=== PATIENT | male | born 1945 | race Two or more races ===

== ENCOUNTER 2018-09-12 14:26 | Inpatient (IN) | payer OTHER, MEDICAID ==
[2018-09-12] MEDS ORDERED: traMADol 50 MG TAB PO PRN (16:35)
--- NOTE | 2018-09-12 17:01 | GHP ---
[f rep st] HISTORY AND PHYSICAL DATE OF ADMISSION: 09/12/2018 CHIEF COMPLAINT: Ascites. 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 He has no histo ry of alcohol or hep C. He sees Dr. Humphreys as an outpatient. [facility]. He has been requiring weekly paracentesis, which he has been gett ing as an outpatient at [facility]. He is unable to take diuretics, as it bumps his creat inine. His ascites is now intractable. He has lower extremity edema. He is getting weak. He has h ad progressive muscle wasting and loss of muscle mass. He has almost no appetite. He has had some i ntermittent vomiting. There has been no blood in his stool or vomit. Denies any abdominal pain or f ever. Sometimes might get a little confused. PAST MEDICAL HISTORY: 1. 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 2. Hep C, negative. 3. Alcohol, negative. 4. CKD. Last creatinine per Dr. Humphreys of 1.9. 5. BPH. MEDICATIONS: Please see computerized record for full detailed list. ALLERGIES: No known drug allergies. SOCIAL HISTORY: No smoking. No alcohol. Lives with his . REVIEW OF SYSTEMS: Complete review of systems is obtained. Review of systems negative regarding con stitutional, HEENT, GI, pulmonary, vascular, , hematology, muscular, endocrine, except for positive s as in the HPI. FAMILY HISTORY: Reviewed and noncontributory to presenting complaint. PHYSICAL EXAMINATION: GENERAL: This is a cachectic-appearing male with temporal wasting, in no acut e distress. VITAL SIGNS: Temp is 36.6, pulse 77, blood pressure 122/67, saturating 97% on room air. EYES: Normal conjunctivae. Pupils react to light. ENT: Normal ears and nose. Hearing intact. Normal teeth. Oropharynx is moist. NECK: Trachea midline. No thyromegaly. CHEST: Normal respira tory effort. Lungs are clear bilaterally. CARDIOVASCULAR: Regular rate and rhythm. No murmur. 1 to 2+ lower extremity edema, predominantly ankles. ABDOMEN: Soft, very distended, tense ascites, no ntender. No hepatomegaly. SKIN: Warm, dry and intact. No rash. MUSCULOSKELETAL: No cyanosis or clubbing. Strength 5/5 in upper and lower extremities. NEUROLOGIC: Cranial nerves are intact. Nor mal sensation to light touch. PSYCH: Alert and oriented x3. Normal affect. Normal judgment. Norm al memory. LABS: I have ordered a stat CBC, BMP, LFTs an INR. They are still pending. This case was personall y discussed with Dr. Humphreys, whom I accepted the patient from him for direct admission. ASSESSMENT/PLAN: 1. Refractory ascites, currently undergoing weekly paracentesis. He is unable tolerate diuretics du e to it bumps his creatinine. Anticipate probable TIPS procedure. We will get baseline laboratory s tudies and if they are stable, Interventional Radiology will be consulted by Dr. Serna to proceed with procedure. Dr. Serna aware of the admission and will see the patient in consultation. 2. Cirrhosis secondary to nonalcoholic steatohepatitis. We will check LFTs and an INR. We will luis enrique ck a baseline abdominal ultrasound. 3. Chronic kidney disease. Per Dr. Humphreys, his last creatinine is 1.9. We will recheck creatinine now. 4. BPH. Continue Flomax. CODE STATUS: Full. ADMISSION STATUS: 1. We will admit to inpatient. Anticipate greater than 2 midnights required for stabilization. 2. DVT prophylaxis. Anticipate procedure, so we will hold off on any pharmacologic prophylaxis. We will check his INR 7. /[id number]/MODL
[2018-09-12 18:28] LABS: PLATELET COUNT 121 10^3/uL (150-400)
[2018-09-12 18:41] LABS: INR 1.15 (0.83-1.16); PROTIME(PATIENT) 14.2 SEC (12.0-15.0)
--- NOTE | 2018-09-13 08:00 | PDMN ---
Medical Necessity Medical necessity: Pt meets inpt criteria per MD order and [facility] M570, Liver Disease Complications, A-2 days. 73 y/o w/hx of cirrhosis due to OROZCO ( currently undergoing weekly paracentesis) presenting w/intractable ascites, LE edema, weakness, intermittent vomiting, slight confusion, hyponatremia (Na 132) , admitted w/above and for consideration of TIPS procedure, unable to tolerate diuretics as they increase his creatinine, GI consult pending, anticipate>2MN for stabilization. Pt also has hx CKD and BPH.
[2018-09-13] MEDS ORDERED: TAMSULOSIN HCL 0.4 MG CAP PO SCH (09:00)
--- NOTE | 2018-09-13 14:54 | PDANEPAE ---
ANE History of Present Illness tips ANE Past Medical History - Cardiovascular History Hx Hypertension: No Hx Arrhythmias: No Hx Chest Pain: No Hx Coronary Artery / Peripheral Vascular Disease: No Hx CHF / Valvular Disease: No Hx Palpitations: No - Pulmonary History Hx COPD: No Hx Asthma/Reactive Airway Disease: No Hx Recent Upper Respiratory Infection: No Hx Oxygen in Use at Home: No Hx Sleep Apnea: No Sleep Apnea Screening Result - Last Documented: Negative - Neurologic History Hx Cerebrovascular Accident: No Hx Seizures: No Hx Dementia: No - Endocrine History Hx Diabetes: No Hypothyroid: No Hyperthyroid: No Obesity: no Endocrine History Comment: sometimes hypoglycemic recently - Renal History Hx Renal Disorders: Yes Renal History Comment: chronic renal insufficiency - Liver History Hx Hepatic Disorders: Yes Hepatic History Comment: non-alcoholic steatohepatitis, cirrhosis, portal htn - Neurological & Psychiatric Hx Hx Neurological and Psychiatric Disorders: No - GI History GERD: mild - Chronic Pain History Chronic Pain: No ANE Review of Systems Review of Systems: - Exercise capacity Exercise capacity: <4 METS ANE Patient History - Allergies Allergies/Adverse Reactions: No Known Allergies Allergy (Unverified 09/12/18 14:29) - Home Medications Home Medications: Tamsulosin HCl [Flomax 0.4 MG (*)] 0.4 mg PO DAILY 09/12/18 [Last Taken 09/11/18 ] - NPO status NPO Status: no food or drink >8 hours NPO Since - Liquids (Date): 09/13/18 NPO Since - Liquids (Time): 00:00 NPO Since - Solids (Date): 09/13/18 NPO Since - Solids (Time): 00:00 - Anes Hx Hx Anesthesia Complications (with details): no prior procedures - Smoking Hx Smoking Status: Never smoked ANE Labs/Vital Signs - Labs Result Diagrams: 09/12/18 18:05 09/12/18 18:05 - Vital Signs Blood Pressure: 109/58 Heart Rate: 68 Respiratory Rate: 15 O2 Sat (%): 93 Height: 175.26 cm Weight: 76.7 kg ANE Physical Exam - Airway Mallampati Score: Class 2 Mouth exam: poor dentition - Pulmonary Pulmonary: no respiratory distress - Cardiovascular Cardiovascular: regular rate and rhythym - ASA Status ASA Status: III ANE Anesthesia Plan Anesthesia Plan: general endotracheal anesthesia
[2018-09-13] MEDS ORDERED: MIDAZOLAM 2 MG/2 ML VIAL IVP ONE (14:55)
[2018-09-13] MEDS ORDERED: CISATRACURIUM BESYLATE 20 MG/10 ML VIAL IV ONE (14:57)
[2018-09-13] MEDS ORDERED: LIDOCAINE 2% 5 ML SDV ONE (14:57)
[2018-09-13] MEDS ORDERED: fentaNYL 100 MCG/2 ML INJ ONE ×2 (14:59→18:16)
[2018-09-13] MEDS ORDERED: PROPOFOL 200 MG/20 ML VIAL ONE (14:59)
[2018-09-13] MEDS ORDERED: IOPAMIDOL (ISOVUE-300) 100 ML BTL ONE ×3 (15:10→16:29)
--- NOTE | 2018-09-13 15:37 | ASMTCMCOM ---
CM Note CM Note Notes: Reviewed chart, pt admitted for abdominal pain due to non alcoholic cirrhosis. Pt went for TIPS procedure today, OT cleared pt for home, will be evaluated pt PT tomorrow. DC Plan: TBD Date Signed: 09/13/2018 03:36 PM Electronically Signed By:Katia Portillo RN
[2018-09-13] MEDS ORDERED: ALBUMIN 25% 200 ML IV ONE (16:30)
[2018-09-13] MEDS ORDERED: ALBUMIN 25% 100 ML SOLN IV ONE ×2 (16:36→16:38)
[2018-09-13] MEDS ORDERED: ALBUMIN 25% 50 ML IV ONE (17:30)
--- NOTE | 2018-09-13 17:30 | HOSPPROG ---
Hospitalist Progress Note Assessment/Plan: patient down for a TIPS procedure and paracentesis. Have not seen the patient, will f/u in the a.m. Dr Tamez is aware the patient will likely be placed in ICU or PCU. She will f/u with him. Objective: Vital Signs Temp Pulse Resp BP Pulse Ox 36.8 C 68 15 109/58 L 93 09/13/18 12:30 09/13/18 14:54 09/13/18 14:54 09/13/18 14:54 09/13/18 14:54 Laboratory Results 09/12/18 18:05 09/12/18 18:05 09/12/18 09/13/18 09/14/18 05:59 05:59 05:59 Intake Total 250 Output Total 100 Balance 150 PT 14.2 SEC (12.0-15.0) 09/12/18 18:05 INR 1.15 (0.83-1.16) 09/12/18 18:05 ICD10 Worksheet Patient Problems: Problems Problem Status Onset Ascites Acute - ICD10 Problem Qualifiers (1) Ascites
[2018-09-13] MEDS ORDERED: oxyCODONE IR 5 MG TAB PO PRN ×2 (17:36→21:36)
--- NOTE | 2018-09-13 17:39 | PDRADPN ---
Radiology Procedure Note Date of Procedure: 09/13/18 Radiologist: Amaya Diaz Anesthesia: GET(General Endotracheal) Pre-op Diagnosis: cirrhosis Post-op Diagnosis: same Indication: hepatorenal syndrome Procedure: TIPS Inf/Abcess present in the surg proc area at time of surgery?: No
[2018-09-13] MEDS ORDERED: NALOXONE HCL 0.4 MG/ML INJ IVP PRN (17:54)
[2018-09-13] MEDS ORDERED: ALBUTEROL 3 ML DEYVIAL IH PRN (17:54)
[2018-09-13] MEDS ORDERED: fentaNYL 100 MCG/2 ML INJ IVP PRN (17:54)
[2018-09-13] MEDS ORDERED: ONDANSETRON 4 MG/2 ML VIAL IVP PRN (17:54)
--- NOTE | 2018-09-13 17:54 | POSTANESTH ---
Post Anesthetic Evaluation Cardiovascular Status: Normal, Stable Respiratory Status: Normal, Stable Level of Consciousness/Mental Status: Can Participate in Eval Pain Control: Adequate, Prn Tx Ordered Nausea/Vomiting Control: Adequate, Prn Tx Ordered Complications Possibly Related to Anesthesia: None Noted
[2018-09-13] MEDS ORDERED: ONDANSETRON 4 MG/2 ML VIAL ONE (18:28)
[2018-09-13] MEDS: ONDANSETRON 4 MG/2 ML VIAL IVP PRN (19:37)
[2018-09-13] MEDS: TAMSULOSIN HCL 0.4 MG CAP PO SCH (20:01)
--- NOTE | 2018-09-13 21:15 | SOAPPROG ---
SOAP Progress Note Assessment/Plan: Assessment: Plan: 09/13/18 21:14 GI note See dictated note for details. Lactulose started. Monitor INR and creatinine. GI will follow. 09/13/18 14:39 Objective: Vital Signs Temp Pulse Resp BP Pulse Ox 36.2 C 74 16 114/57 L 97 09/13/18 20:00 09/13/18 20:00 09/13/18 20:00 09/13/18 20:00 09/13/18 20:00 Laboratory Results 09/12/18 18:05 09/12/18 18:05 09/12/18 09/13/18 09/14/18 05:59 05:59 05:59 Intake Total 250 300 Output Total 100 16874 Balance 150 -62139 PT 14.2 SEC (12.0-15.0) 09/12/18 18:05 INR 1.15 (0.83-1.16) 09/12/18 18:05 ICD10 Worksheet Patient Problems: Problems Problem Status Onset Ascites Acute
--- NOTE | 2018-09-13 21:29 | HOSPPROG ---
Hospitalist Progress Note Assessment/Plan: 73 yo M with dx of cirrhosis due to OROZCO presenting with refractory ascites and CKD now s/p TIPS # cirrhosis: due to OROZCO, followed by GI and having issues with refractory ascites and renal failure concerning for hepatorenal syndrome now s/p TIPS given his inability to tolerate diuresis with worsening creatinine. He is currently reporting increased back pain since the procedure. GI consulted, monitoring overnight. # CKD: presumably due to hepatorenal syndrome, most recent creatinine was 1.9 which is what it is here as well, unable to tolerate diuresis as above # BPH: continue tamsulosin # back pain: worse than usual post procedure, exam benign, oxycodone as needed # IP status Patient new to my care. Old records reviewed and summarized as above. Care plan reviewed with Casandra Roberts as above. Subjective: patient states that his back is hurting more since the procedure, he has had some n/v as well, taking zofran Objective: Vital Signs Temp Pulse Resp BP Pulse Ox 36.2 C 74 16 114/57 L 97 09/13/18 20:00 09/13/18 20:00 09/13/18 20:00 09/13/18 20:00 09/13/18 20:00 Laboratory Results 09/12/18 18:05 09/12/18 18:05 09/12/18 09/13/18 09/14/18 05:59 05:59 05:59 Intake Total 250 300 Output Total 100 96393 Balance 150 -61944 PT 14.2 SEC (12.0-15.0) 09/12/18 18:05 INR 1.15 (0.83-1.16) 09/12/18 18:05 chronically ill appearing anicteric poor dentition rrr no mrg dec bs at bases ascites, not tense ble edema warm dry well perfused oriented ICD10 Worksheet Patient Problems: Problems Problem Status Onset Ascites Acute
[2018-09-13] MEDS ORDERED: HYDROmorphONE/DILAUDID 1 MG/ML INJ IVP PRN (21:36)
[2018-09-13] MEDS: LACTULOSE 20 GM/30 ML UDCUP PO SCH (22:11)
[2018-09-13] MEDS: PROMETHAZINE HCL 25 MG/ML INJ IVP PRN (23:00)
[2018-09-14] MEDS: ONDANSETRON 4 MG/2 ML VIAL IVP PRN ×2 (03:30→22:46)
[2018-09-14 04:25] LABS: PLATELET COUNT 122 10^3/uL (150-400)
[2018-09-14 04:32] LABS: INR 1.26 (0.83-1.16); PROTIME(PATIENT) 15.3 SEC (12.0-15.0)
--- NOTE | 2018-09-14 05:21 | GCON ---
[f rep st] CONSULTATION DATE OF CONSULTATION: 09/13/2018 CONSULTING PHYSICIAN: Casandra Roberts NP. REASON FOR CONSULTATION: Ascites. CHIEF COMPLAINT: Ascites. HISTORY OF PRESENT ILLNESS: The patient is a 73-year-old male with a history of cirrhosis presumed secondary to nonalcoholic fatty liver disease, who presents to [facility] with complaints of ascites. The patient has been followed as an outpatient by my partners, Dr. Lev Ly and Dr. Annette Humphreys. He has been having decompensation of his cirrhosis manifested by ascites and pedal edema in the setting of mild renal insufficiency. He has been requiring weekly paracentesis. Due to his renal insufficiency, he has been limited in the amount of diuretics he can take. He has had a serum ascites albumin gradient greater than 1.1, consistent with portal hypertension. He also has had a MELD-Na of 14. Due to his weekly large volume paracentesis , he has had significant nutritional deficits and has been worked up as outpatient for evaluation for a TIPS procedure. He had an abdominal ultrasound performed on 08/10/2018, which demonstrated patent main, left portal vein, right portal vein, and middle hepatic vein in the setting of a large amount of ascites. He also had an echocardiogram which revealed left ventricular function of 55% with no portal hypertension. He has had significant lower extremity edema. He also feels weakness and has had some complaints of low appetite due to his ascites. He denies any exacerbating or alleviating factors to his symptoms. He denies any abdominal pain, blood in his stools, fevers, or weight loss. I am being asked by Casandra Roberts NP to evaluate this patient in consultation regarding his refractory ascites. PAST MEDICAL HISTORY: 1. 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 2. Chronic renal insufficiency. 3. BPH. 4. Hypothyroidism. 5. Diabetes mellitus. 6. COPD. 7. Asthma. 8. GERD. 9. Coronary artery disease. PAST SURGICAL HISTORY: 1. No prior surgery. MEDICATIONS: 1. Aldactone 100 mg a day. 2. Doxazosin. 3. Furosemide 40 mg a day. 4. Levothyroxine. 5. Omeprazole. 6. Spironolactone 50 mg 2 times twice a day. ALLERGIES: NKDA. SOCIAL HISTORY: Former smoker. Not using alcohol. FAMILY HISTORY: Mom has cirrhosis. REVIEW OF SYSTEMS: A 14-point review of systems was asked. Pertinent positives and negatives per HPI. EXAM: VITALS: Temperature 36.6, pulse 72, blood pressure 120/70, respirations 16. GENERAL: Awake, alert, oriented x3, in no distress. He is cachectic appearing. HEENT: Anicteric sclerae. Moist mucosa. NECK: No JVD. CARDIOVASCULAR: Regular rate and rhythm. Positive S1, S2. No murmurs, rubs, or gallops appreciated. LUNGS: Clear to auscultation bilaterally. No wheezes , rales, or rhonchi. ABDOMEN: Soft, distended. Tense. Positive bowel sounds. No guarding. No rebound. EXTREMITIES: Edema. No clubbing or cyanosis. SKIN: No rash. MUSCULOSKELETAL: No obvious joint effusions. NEUROLOGIC: Cranial nerves 2 through 12 grossly intact. LYMPH: No lymphadenopathy. PSYCH: Normal affect. LAB DATA: INR 1.15. Creatinine 1.9. ASSESSMENT AND PLAN: 1. Refractory ascites- requiring weekly paracentesis. Diuretic dose has not been able to be increased due to renal insufficiency. At this time, I recommend to proceed with a TIPS procedure. I discussed this with our weapons engineer, Dr. Ly, at length. Would recommend to monitor INR. We will also place the patient on lactulose due to the increased chance of hepatic encephalopathy. I discussed the risks, benefits and alternatives of this at great length with the patient. 2. Cirrhosis- presumed secondary to nonalcoholic steatohepatitis, had an extensive workup as an outpatient. 3. Chronic kidney disease. 4. Benign prostatic hypertrophy. Thank you very much for this consultation. /[id number]/MODL MTDD
--- NOTE | 2018-09-14 08:38 | SOAPPROG ---
SOAP Progress Note Assessment/Plan: Assessment: 73 year old with Cirrhosis due to OROZCO, portal HTN. Refractory ascites. CKD unable to tolerate diuretics. Requiring multiple paracentesis. Patient is s/p TIPS. Patient with CKD, creatine 1.9 yesterday, today 2.3. Patient without complaint today. No abdominal pain or discomfort. Plan: 1. Cirrhosis refractory ascites s/p TIPS 2. Worsening azotemia with concern for HRS. Recommend Renal consult 3. Continue on Lactulose 09/14/18 08:40 Subjective: CC: Cirrhosis, OROZCO, refractory ascites S/p TIPS. No abdominal pain or discomfort. Objective: Vital Signs Temp Pulse Resp BP Pulse Ox 36.4 C 74 11 L 115/64 95 09/14/18 07:22 09/14/18 07:22 09/14/18 07:22 09/14/18 07:22 09/14/18 07:22 Laboratory Results 09/14/18 03:40 09/14/18 03:40 09/13/18 09/14/18 09/15/18 05:59 05:59 05:59 Intake Total 250 550 Output Total 100 69736 Balance 150 -76975 PT 15.3 SEC (12.0-15.0) H 09/14/18 03:40 INR 1.26 (0.83-1.16) H 09/14/18 03:40 Generic Name Dose Route Start Last Admin Trade Name Freq PRN Reason Stop Dose Admin Acetaminophen 500 mg 09/12/18 16:35 Tylenol PO 03/11/19 16:34 Q6 PRN Pain, Mild/Fever, Can Take PO Hydromorphone HCl 0.2 mg 09/13/18 21:36 Dilaudid IVP 09/23/18 21:35 Q2HRS PRN Pain, Severe Unable to Take PO Lactulose 20 gm 09/13/18 22:00 09/13/18 22:11 Cephulac PO 03/12/19 21:59 20 gm TID ROME Administration Ondansetron HCl 4 mg 09/12/18 16:35 09/14/18 03:30 Zofran IVP 03/11/19 16:34 4 mg Q4 PRN Administration Nausea/Vomiting, Can't Take PO Oxycodone HCl 5 - 10 mg 09/13/18 21:36 09/13/18 22:12 Oxycodone Ir PO 09/23/18 17:35 5 mg Q4HRS PRN Administration Pain, Severe Able to Take PO Promethazine HCl 12.5 mg 09/13/18 21:36 09/13/18 23:00 Phenergan IVP 03/12/19 21:35 12.5 mg Q6HRS PRN Administration Nausea/Vomiting, Can't Take PO Tamsulosin HCl 0.4 mg 09/13/18 21:00 09/13/18 20:01 Flomax PO 03/12/19 08:59 0.4 mg HS ROME Administration Tramadol HCl 50 mg 09/12/18 16:35 09/13/18 20:01 Ultram PO 03/11/19 16:34 50 mg Q6HRS PRN Administration Pain, Moderate Able to Take PO Discontinued Medications Generic Name Dose Route Start Last Admin Trade Name Freq PRN Reason Stop Dose Admin Albumin Human Confirm 09/13/18 16:36 Flexbumin 25 % (Premix) Administered 09/13/18 16:37 Dose 100 ml IV .STK-MED ONE Albumin Human Confirm 09/13/18 16:38 Flexbumin 25 % (Premix) Administered 09/13/18 16:39 Dose 100 ml IV .STK-MED ONE Albuterol 3 ml 09/13/18 17:54 Proventil Neb IH 09/13/18 18:54 Q10M PRN PACU, Wheezing Cisatracurium Besylate Confirm 09/13/18 14:57 Nimbex Administered 09/13/18 14:58 Dose 20 mg IV .STK-MED ONE Fentanyl Confirm 09/13/18 14:59 Sublimaze Administered 09/13/18 15:00 Dose 100 mcg .ROUTE .STK-MED ONE Fentanyl 25 - 100 mcg 09/13/18 17:54 09/13/18 18:18 Sublimaze IVP 09/13/18 18:54 50 mcg Q5M PRN Administration PACU, IMMEDIATE Pain control Fentanyl Confirm 09/13/18 18:16 Sublimaze Administered 09/13/18 18:17 Dose 100 mcg .ROUTE .STK-MED ONE Heparin Sodium (Porcine) Confirm 09/13/18 15:10 Heparin Flush 2,000 Unit/Ns 1,000 Ml Administered 09/13/18 15:11 Dose 4,000 unit .ROUTE .STK-MED ONE Levofloxacin/Dextrose 150 mls @ 100 mls/hr 09/13/18 15:00 09/13/18 15:20 Levaquin 750 Mg (Premix) IV 09/13/18 16:29 150 mls ONCE ONE Administration Albumin Human 200 mls @ 0 mls/hr 09/13/18 16:30 09/13/18 16:40 Flexbumin 25 % (Premix) IV 09/13/18 16:31 200 mls ONCE ONE Administration As Directed Iopamidol Confirm 09/13/18 15:10 Isovue-300 Administered 09/13/18 15:11 Dose 100 ml .ROUTE .STK-MED ONE Iopamidol Confirm 09/13/18 15:12 Isovue-300 Administered 09/13/18 15:13 Dose 100 ml .ROUTE .STK-MED ONE Iopamidol Confirm 09/13/18 16:29 Isovue-300 Administered 09/13/18 16:30 Dose 100 ml .ROUTE .STK-MED ONE Lidocaine HCl Confirm 09/13/18 14:57 Xylocaine-Mpf 2% Vial Administered 09/13/18 14:58 Dose 5 ml .ROUTE .STK-MED ONE Midazolam HCl 2 mg 09/13/18 14:55 09/13/18 19:38 Versed IVP 09/13/18 14:56 Not Given ONCALL ONE Naloxone HCl 0.1 mg 09/13/18 17:54 Narcan IVP 09/13/18 18:54 Q2M PRN PACU Resp Rate <10/min Ondansetron HCl 2 - 4 mg 09/13/18 17:54 09/13/18 16:35 Zofran IVP 09/13/18 18:54 4 mg Q10M PRN Administration PACU, Nausea/Vomiting Ondansetron HCl Confirm 09/13/18 18:28 Zofran Administered 09/13/18 18:29 Dose 4 mg .ROUTE .STK-MED ONE Oxycodone HCl 5 mg 09/13/18 17:36 Oxycodone Ir PO 09/23/18 17:35 Q4HRS PRN Pain, Severe Able to Take PO Propofol Confirm 09/13/18 14:59 Diprivan Administered 09/13/18 15:00 Dose 200 mg .ROUTE .STK-MED ONE Tamsulosin HCl 0.4 mg 09/13/18 09:00 09/13/18 09:07 Flomax PO 03/12/19 08:59 Not Given DAILY ROME Physical Exam - Physical Exam General Appearance: alert, no apparent distress Respiratory: lungs clear Cardiac/Chest: regular rate, rhythm Abdomen: normal bowel sounds, non-tender, soft Skin: normal color, warm/dry Neuro/Psych: alert, normal mood/affect ICD10 Worksheet Patient Problems: Problems Problem Status Onset Ascites Acute
[2018-09-14] MEDS: ACETAMINOPHEN 500 MG TAB PO PRN (09:32)
[2018-09-14] MEDS: LACTULOSE 20 GM/30 ML UDCUP PO SCH ×3 (09:33→22:40)
--- NOTE | 2018-09-14 10:44 | SOAPPROG ---
SOAP Progress Note Assessment/Plan: Assessment: Cirrhosis with refractory ascites and presumed HRS with elevated Cr. Admitted for TIPS as treatment for above, which went well yesterday. Gradient went from 14 to 2 after shunt placement. Plan: 1. Elevated Cr: might be from contrast load yesterday, which was 120cc 2. Elevated LFT: might also be transient as it is normally seen after TIPS 3. remains to be seen whether patient tolerates such low portal gradient; no signs of hepatic encephalopathy this am. 4. remains to be seen whether TIPS improves renal function once recovered from procedure 5. Esophageal varices seen during procedure yesterday 6. If worsening hepatic and renal failure in upcoming days/weeks, can embolize esophageal varices and shut down TIPS as reversal treatment. 09/14/18 10:37 Subjective: No specific complaints. No abd discomfort. Objective: Vital Signs Temp Pulse Resp BP Pulse Ox 36.4 C 74 11 L 115/64 95 09/14/18 07:22 09/14/18 07:22 09/14/18 07:22 09/14/18 07:22 09/14/18 07:22 Laboratory Results 09/14/18 03:40 09/14/18 03:40 09/13/18 09/14/18 09/15/18 05:59 05:59 05:59 Intake Total 250 550 Output Total 100 95669 Balance 150 -65326 PT 15.3 SEC (12.0-15.0) H 09/14/18 03:40 INR 1.26 (0.83-1.16) H 09/14/18 03:40 Cr 2.1 this am, up from 1.9 yesterday. HCT stable. Slight in crease in LFT. ICD10 Worksheet Patient Problems: Problems Problem Status Onset Ascites Acute
--- NOTE | 2018-09-14 11:06 | ASMTCMCOM ---
CM Note CM Note Notes: Both PT/OT have cleared patient for home. No d/c needs anticipated. IR + GI following. Current CM Discharge plan: home independent Date Signed: 09/14/2018 11:05 AM Electronically Signed By:Luisa Lawton RN
--- NOTE | 2018-09-14 14:59 | HOSPPROG ---
Hospitalist Progress Note Assessment/Plan: 73 yo M with dx of cirrhosis due to OROZCO presenting with refractory ascites and CKD now s/p TIPS # cirrhosis: due to OROZCO, followed by GI and having issues with refractory ascites and renal failure concerning for hepatorenal syndrome now s/p TIPS given his inability to tolerate diuresis with worsening creatinine. He is currently reporting increased back pain since the procedure. GI consulted, monitoring overnight. -trend LFTs. # CKD:presumed hepatorenal type 1, exacerbated possibly by contrast load in IR. creatinine increased overnight. -nephrology consulted for worsening remal function. # BPH: continue tamsulosin #urinary retention- patient missed doses of his flomax, bladder scan reviewed and showing 700cc of urine.straight cath prn # hyperbilirubinemia- likely secondary to tips procedure. monitor LFTs daily. # back pain: worse than usual post procedure, exam benign, oxycodone as needed # IP status Patient is new to my care. Chart, imaging, labs reviewed. Subjective: struggling to pee, which he says is normal for him if he misses his flomax. Objective: Vital Signs Temp Pulse Resp BP Pulse Ox 36.6 C 85 20 111/53 L 94 09/14/18 11:04 09/14/18 11:04 09/14/18 11:04 09/14/18 11:04 09/14/18 11:04 Laboratory Results 09/14/18 03:40 09/14/18 03:40 09/13/18 09/14/18 09/15/18 05:59 05:59 05:59 Intake Total 250 550 Output Total 100 99826 650 Balance 150 -14616 -650 PT 15.3 SEC (12.0-15.0) H 09/14/18 03:40 INR 1.26 (0.83-1.16) H 09/14/18 03:40 - Time Spent With Patient Time Spent with Patient: greater than 35 minutes Time Spent with Patient: Greater than 35 minutes spent on this patients care, greater than 50% of time spent counseling, educating, and coordinating care regarding the above mentioned plan. - Physical Exam Constitutional: no apparent distress, appears nourished, not in pain Eyes: PERRL, anicteric sclera, EOMI Ears, Nose, Mouth, Throat: moist mucous membranes, hearing normal, ears appear normal, no oral mucosal ulcers Cardiovascular: regular rate and rhythym, no murmur, rub, or gallop Respiratory: no respiratory distress, no rales or rhonchi, clear to auscultation Gastrointestinal: normoactive bowel sounds, soft, non-tender abdomen, no palpable masses Genitourinary: no bladder fullness, no bladder tenderness, no renal bruits Skin: no rashes or abrasions, no fluctuance, no induration Musculoskeletal: full muscle strength, no muscle tenderness, normal joint ROM Neurologic: AAOx3, sensation intact bilaterally Psychiatric: interacting appropriately, not anxious, not encephalopathic, thought process linear Lymph, Heme, Immunologic: no cervical LAD, no supraclavicular LAD ICD10 Worksheet Patient Problems: Problems Problem Status Onset Ascites Acute
[2018-09-14 20:29] LABS: HEPATITIS B SURFACE ANTIGEN NEGATIVE (NEGATIVE)
[2018-09-14 20:31] LABS: HEPATITIS B CORE AB TOTAL NEGATIVE (NEGATIVE); HEPATITIS C ANTIBODY TOTAL NEGATIVE (NEGATIVE)
--- NOTE | 2018-09-14 20:44 | GCON ---
[f rep st] CONSULTATION DATE OF CONSULTATION: 09/14/2018 REASON FOR CONSULTATION: Opinion regarding borderline oliguric acute kidney injury. HISTORY OF PRESENT ILLNESS: The patient is a very pleasant 73-year-old gentleman with chronic kidney disease, baseline creatinine of around 1.8 to 1.9. The patient was diagnosed with nonalcoholic stea tohepatitis with cirrhosis. He has undergone multiple large-volume paracenteses in the past; however , they have become more frequent, and his serum creatinine has been increasing. The patient was admi tted to the hospital on 09/12/2018 for a TIPS procedure on 09/13/2018. The patient underwent TIPS procedure on 09/13/2018 and subsequently a 6500 cc large-volume paracentes is simultaneously. The TIPS procedure was successful. His portosystemic gradient went from 14 down to 2, and his right atrial pressure increased from 7 mm prior to 13 mm after his TIPS was done; howev er, over the course of the past 24 hours, his urine output has been marginal at 650 cc and his serum creatinine has continued to rise. Currently, he is lying in bed. He is tired but feels otherwise okay. He has not had fevers or chill s. Has occasional nausea. No vomiting. He does have some anorexia. No cough or sputum production. No hemoptysis, hematemesis, epistaxis. He does have some abdominal discomfort, particularly when h e is distended with ascites. No melena, hematochezia, blurry vision, double vision, headache, orthop robin, paroxysmal nocturnal dyspnea, palpitations, or syncope. PAST MEDICAL HISTORY: Significant for: 1. Cirrhosis. 2. OROZCO. 3. Hepatitis C negative in the past. 4. Chronic kidney disease, stage 4. Baseline creatinine 1.8 to 1.9 range. 5. History of BPH. ALLERGIES: None. MEDICATIONS: Include: 1. Tylenol. 2. Dilaudid. 3. Lactulose 20 g t.i.d. 4. Flomax 0.4 mg at bedtime. 5. Tramadol 50 mg every 6 hours as needed for pain. SOCIAL HISTORY: He is . He does not use tobacco, alcohol, IV or recreational drugs. 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 REVIEW OF SYSTEMS: A complete 12-point review of systems was performed with pertinent positives and negatives as per the previous sections. PHYSICAL EXAMINATION: VITAL SIGNS: Blood pressure 125/54, pulse 74, respirations 20, temperature 36 .3 degrees. Urine output about 650 cc. GENERAL: He is awake, alert. He is cachectic, but pleasant and cooperative. HEENT: Pupils are reactive to light. Extraocular movements are intact. Mucous m embranes are somewhat dry. NECK: No lymphadenopathy or thyromegaly. HEART: Regular. Grade 1/6 to 2/6 systolic murmur. No rub. No S3. LUNGS: Decreased breath sounds in the bases. No rhonchi or wheezes. ABDOMEN: Bowel sounds are positive. Tender, particularly over his liver. No significant ascites appreciated. EXTREMITIES: Trace to +1 edema. No cyanosis. He does have some mild clubbing . NEUROLOGIC: No asterixis. Moves all extremities. SKIN: Somewhat jaundiced. LYMPH: No palpabl e lymphadenopathy or lymphedema. MUSCULOSKELETAL: No effusions or tenderness. LABORATORY: Serum sodium 136; potassium 4.9; chloride 109; CO2 20, up from 17 earlier today; BUN 84; creatinine 2.5, up from 2.1; estimated GFR 25 cc/min; glucose 97; calcium 8.1. Total bilirubin 0.9 on the 8th, today up to 1.5. Alkaline phosphatase has decreased from 211 to 188, AST has increased a bit from 43 to 77. Albumin has stayed stable at 2.6 with a total protein of 4.9. WBC 6.2; hemoglob in 11.8; hematocrit 37.2; platelet count 122,000. INR 1.26. IMAGING: He did have a renal ultrasound done that showed the right kidney was 10.3 cm and the left 9 .77 cm. No hydronephrosis. His liver was small and cirrhotic. IMPRESSION: Acute kidney injury, likely multifactorial. Certainly he has had with his transjugular intrahepatic portosystemic shunt procedure some intravenous contrast that could be causing his acute kidney injury. Also, he has had hemodynamic shifts portosystemically that may have caused his kidney s to become a bit ischemic, resulting in some acute kidney injury, and certainly with his large volum e paracentesis, etc., we are worried about hepatorenal syndrome. He is borderline oliguric with 650 cc with the urine output today. RECOMMENDATIONS: 1. I think before we start midodrine and octreotide we need to get some urine and repeat his serum c hemistries. I did discuss hepatorenal syndrome with the patient and the family. I explained to him that if hepatorenal syndrome is a cause of his renal failure, dialysis is not an option. He would ne ed liver transplantation were that the case. We will get his urine and serum chemistries tonight and make a decision about what we need to do tomorrow. In the meantime, we will start IV albumin every 8 hours for at least 3 doses until we can get a better handle on what is going on between his liver d isease and kidney disease. 2. All questions were answered to the patient and the family's satisfaction. Thank you for allowing me to participate in the care of your patient. If there are any questions, pl ease do not hesitate to contact us. We will be following along with you. /[id number]/MODL
[2018-09-14] MEDS: ALBUMIN 25% 50 ML IV SCH (20:50)
[2018-09-14] MEDS: TAMSULOSIN HCL 0.4 MG CAP PO SCH (20:50)
[2018-09-15] MEDS: ALBUMIN 25% 50 ML IV SCH ×2 (04:16→11:24)
[2018-09-15] MEDS: LACTULOSE 20 GM/30 ML UDCUP PO SCH ×4 (09:52→21:01)
[2018-09-15] MEDS: ONDANSETRON 4 MG/2 ML VIAL IVP PRN (11:24)
--- NOTE | 2018-09-15 13:42 | ASMTCMCOM ---
CM Note CM Note Notes: Reviewed pt in rounds, kidney function a bit worse. May dc on Monday, plan remains the same, pt was cleared by PT/OT for home. CM available should needs change. DC Plan: Independent Date Signed: 09/15/2018 01:41 PM Electronically Signed By:Katia Portillo RN
[2018-09-15] MEDS: PROMETHAZINE HCL 25 MG/ML INJ IVP PRN (14:09)
--- NOTE | 2018-09-15 15:13 | HOSPPROG ---
Hospitalist Progress Note Assessment/Plan: 73 yo M with dx of cirrhosis due to OROZCO presenting with refractory ascites and CKD now s/p TIPS # cirrhosis: due to OROZCO, followed by GI and having issues with refractory ascites and renal failure concerning for hepatorenal syndrome now s/p TIPS given worsening creatinine. -GI following -LFTs slightly worse from yesterday. # YADIEL:presumed hepatorenal type 1, exacerbated possibly by contrast load in IR. creatinine continues to worsen despite albumin challenge which is concerning. -nephrology following -consider octreotide, will discuss with nephrology # BPH: continue tamsulosin #urinary retention- likely post op. resolved. # hyperbilirubinemia- likely secondary to tips procedure although LFTs worsened today. # back pain: controlled on PO and IV dialudid # IP status Objective: Vital Signs Temp Pulse Resp BP Pulse Ox 36.5 C 70 25 H 115/54 L 97 09/15/18 12:53 09/15/18 12:53 09/15/18 12:53 09/15/18 12:53 09/15/18 12:53 Laboratory Results 09/14/18 03:40 09/15/18 03:13 09/14/18 09/15/18 09/16/18 05:59 05:59 05:59 Intake Total 550 1690 Output Total 6500 700 Balance -5950 990 PT 15.3 SEC (12.0-15.0) H 09/14/18 03:40 INR 1.26 (0.83-1.16) H 09/14/18 03:40 ICD10 Worksheet Patient Problems: Problems Problem Status Onset Ascites Acute
[2018-09-15] MEDS: TAMSULOSIN HCL 0.4 MG CAP PO SCH (20:59)
--- NOTE | 2018-09-16 08:07 | SOAPPROG ---
SOAP Progress Note Assessment/Plan: Assessment: 1. OROZCO with cirrhosis 2. Refractory ascites 3. Acute kidney injury in the setting of chronic renal disease 4. Urinary retention 5. TIPS placement Plan: 1. I would recommend a farooq catheter to avoid the component of bladder outlet obstruction and urinary retention. This will also allow better assessment of urine output 2. Check LFTs and INR today 3. I would also favor adding midodrine and octreotide to albumin infusions and have discussed this with Dr. Hidalgo of nephrology who will see him and render an opinion on the utility of this (in addressing any component of HRS) 4. Diet as tolerated but would recommend low sodium/renal diet 5. Monitor LFTs, PT/INR, UOP and electrolytes daily 09/16/18 08:03 Subjective: CC: No acute events Serum Creatinine elevated again today Urine retention requiring straight catheterization of 600cc urine Denies abdominal pain. No alterations in mentation. Refusing lactulose but is stooling. Objective: Vital Signs Temp Pulse Resp BP Pulse Ox 36.6 C 74 19 114/54 L 98 09/16/18 07:44 09/16/18 07:44 09/16/18 07:44 09/16/18 07:44 09/16/18 07:44 Laboratory Results 09/14/18 03:40 09/16/18 03:32 09/15/18 09/16/18 09/17/18 05:59 05:59 05:59 Intake Total 1690 650 Output Total 700 555 Balance 990 95 PT 15.3 SEC (12.0-15.0) H 09/14/18 03:40 INR 1.26 (0.83-1.16) H 09/14/18 03:40 Physical Exam - Physical Exam General Appearance: no apparent distress, thin EENT: normal ENT inspection Neck: supple Respiratory: lungs clear, normal breath sounds Cardiac/Chest: regular rate, rhythm, systolic murmur Abdomen: non-tender, soft, No distended, No guarding, No rebound, No ascites Extremities: pedal edema, swelling Neuro/Psych: alert, normal mood/affect, oriented x 3 ICD10 Worksheet Patient Problems: Problems Problem Status Onset Ascites Acute
[2018-09-16] MEDS: LACTULOSE 20 GM/30 ML UDCUP PO SCH ×3 (08:51→20:52)
[2018-09-16 10:17] LABS: INR 1.43 (0.83-1.16); PROTIME(PATIENT) 16.8 SEC (12.0-15.0)
--- NOTE | 2018-09-16 10:50 | SOAPPROG ---
SOAP Progress Note Assessment/Plan: Assessment/Plan: YADIEL on CKD 3: Cr up form 1.9 to now 3.1, nonoliguric, lytes ok. His urine studies suggest prerenal etiology from TIPS and large volume paracentesis vs HRS. He continued to worsen despite some albumin given. - Pt has no emergent HD needs. That being said, I discussed his situation with him today, and he was able to tell me that understanding the consequences could mean , he would under no circumstance undergo a liver transplant or dialysis. We have no plans to offer him dialysis if his renal function continues to worsen given his wishes. - Will start on midodrine/albumin/octreotide and see if he improves. - Will continue to monitor. - Avoid hypotension and nephrotoxins. Metabolic acidosis: in setting of YADIEL, will continue to monitor. Anemia: no need for epo, will continue to monitor. Subjective: No acute events overnight. Pt states he is comfortable, not having any pain or dyspnea. He is eating breakfast this morning, has no specific complaints. Objective: Vital Signs Temp Pulse Resp BP Pulse Ox 36.6 C 74 19 114/54 L 98 09/16/18 07:44 09/16/18 07:44 09/16/18 07:44 09/16/18 07:44 09/16/18 07:44 Laboratory Results 09/14/18 03:40 09/16/18 03:32 09/15/18 09/16/18 09/17/18 05:59 05:59 05:59 Intake Total 1690 650 Output Total 700 555 Balance 990 95 PT 16.8 SEC (12.0-15.0) H 09/16/18 09:58 INR 1.43 (0.83-1.16) H 09/16/18 09:58 General: alert and oriented, no acute distress Eyes: EOMI, PERRL OP: Clear CV: RRR Resp: nonlabored respirations Abd: Soft, NT Ext: no edema BLE Neuro: CN II-XII Grossly intact, no asterixis Psych: cooperative, appropriate mood and affect ICD10 Worksheet Patient Problems: Problems Problem Status Onset Ascites Acute
[2018-09-16] MEDS: ALBUMIN 25% 100 ML IV SCH ×3 (12:40→23:18)
[2018-09-16] MEDS: OCTREOTIDE 100 MCG/1 ML INJ SC SCH ×3 (12:40→23:18)
--- NOTE | 2018-09-16 13:32 | HOSPPROG ---
Hospitalist Progress Note Assessment/Plan: 73 yo M with dx of cirrhosis due to OROZCO presenting with refractory ascites and CKD now s/p TIPS # cirrhosis: due to OROZCO, followed by GI and having issues with refractory ascites and renal failure concerning for hepatorenal syndrome now s/p TIPS given worsening creatinine. -GI following -LFTs continue to worsen -cont daily monitor of LFTs/Coags/real function # ARF: renal function continues to decline despite albumin. Could be prerenal, but concerning for hepatorenal. I discussed with renal who would like to try higher dose of albumin, sandostatin, and midodrine. -nephrology following -patient initially refusing liver transplant and HD if needed in future, now would like more info, and time to think. # BPH: continue tamsulosin #urinary retention-Peralta placed. # hyperbilirubinemia- likely secondary to tips procedure although LFTs worsened today. # back pain: controlled on PO and IV dialudid # IP status I had a long discussion today about liver transplant and HD, which patient initially refused. I broached the topic of advanced planning and code status and if patient did not want transplant/HD would he want us to intubate and perform CPR. He seemed overwhelmed with everything and just needs more time to think about everything. 40 minutes of time spent discussion treatment and advanced planning. Subjective: patient feels fine. no complaints Objective: Vital Signs Temp Pulse Resp BP Pulse Ox 36.6 C 78 12 115/58 L 95 09/16/18 11:54 09/16/18 11:54 09/16/18 11:54 09/16/18 11:54 09/16/18 11:54 Laboratory Results 09/14/18 03:40 09/16/18 03:32 09/15/18 09/16/18 09/17/18 05:59 05:59 05:59 Intake Total 1690 650 Output Total 700 555 250 Balance 990 95 -250 PT 16.8 SEC (12.0-15.0) H 09/16/18 09:58 INR 1.43 (0.83-1.16) H 09/16/18 09:58 - Physical Exam Constitutional: chronically ill appearing Eyes: PERRL, anicteric sclera, EOMI Ears, Nose, Mouth, Throat: moist mucous membranes, hearing normal, ears appear normal, no oral mucosal ulcers Cardiovascular: regular rate and rhythym, no murmur, rub, or gallop Respiratory: no respiratory distress, no rales or rhonchi, clear to auscultation Gastrointestinal: normoactive bowel sounds, soft, non-tender abdomen, no palpable masses Genitourinary: no bladder fullness, no bladder tenderness, no renal bruits Skin: no rashes or abrasions, no fluctuance, no induration Musculoskeletal: full muscle strength, no muscle tenderness, normal joint ROM Neurologic: AAOx3, sensation intact bilaterally Psychiatric: interacting appropriately, not anxious, not encephalopathic, thought process linear Lymph, Heme, Immunologic: no cervical LAD, no supraclavicular LAD ICD10 Worksheet Patient Problems: Problems Problem Status Onset Ascites Acute
[2018-09-16] MEDS: MIDODRINE HCL 5 MG TAB PO SCH ×2 (16:13→20:50)
[2018-09-16] MEDS: TAMSULOSIN HCL 0.4 MG CAP PO SCH (20:50)
[2018-09-17 04:32] LABS: INR 1.59 (0.83-1.16); PROTIME(PATIENT) 18.2 SEC (12.0-15.0)
[2018-09-17] MEDS: ALBUMIN 25% 100 ML IV SCH ×4 (06:19→23:13)
[2018-09-17] MEDS: MIDODRINE HCL 5 MG TAB PO SCH ×3 (10:26→23:14)
[2018-09-17] MEDS: LACTULOSE 20 GM/30 ML UDCUP PO SCH ×3 (10:27→23:10)
[2018-09-17] MEDS ORDERED: SODIUM ZIRCONIUM CYCLOSILICATE 10 GM PACKET PO ONE (10:50)
[2018-09-17] MEDS: OCTREOTIDE 100 MCG/1 ML INJ SC SCH ×3 (10:50→23:13)
--- NOTE | 2018-09-17 10:54 | SOAPPROG ---
SOAP Progress Note Assessment/Plan: Assessment/Plan: YADIEL on CKD 3: Cr up from 1.9 to now 3.1, nonoliguric, lytes ok, now Cr 2.9. His urine studies suggest prerenal etiology from TIPS and large volume paracentesis vs HRS. - Pt has no emergent HD needs and with improving Cr today is likely to avoid HD this hospitalization. - I did discuss the possibility of dialysis in the future, and overall he would be a poor candidate for HD and it would not significantly change his overall course given his liver disease with a MELD of 20 at the beginning of this admission. If he was to pursue liver transplant and be listed, it could be considered. - Will continue midodrine/albumin/octreotide. - Will continue to monitor. - Avoid hypotension and nephrotoxins. Metabolic acidosis: in setting of YADIEL, will continue to monitor. Anemia: no need for epo, will continue to monitor. Hyperkalemia: will order a dose of Lokelma today. Subjective: No acute events overnight. Pt states that he is feeling fine, no worsening ascites, has no complaints today. Objective: Vital Signs Temp Pulse Resp BP Pulse Ox 36.9 C 72 18 114/59 L 93 09/17/18 08:00 09/17/18 08:00 09/17/18 08:00 09/17/18 08:00 09/17/18 08:00 Laboratory Results 09/14/18 03:40 09/17/18 03:41 09/16/18 09/17/18 09/18/18 05:59 05:59 05:59 Intake Total 650 950 Output Total 555 700 Balance 95 250 PT 18.2 SEC (12.0-15.0) H 09/17/18 03:41 INR 1.59 (0.83-1.16) H 09/17/18 03:41 General: alert and oriented, no acute distress Eyes: EOMI, PERRL OP: Clear CV: RRR Resp: nonlabored respirations Abd: Soft, distended, NTTP Ext: +trace edema BLE Neuro: CN II-XII Grossly intact, no asterixis Psych: cooperative ICD10 Worksheet Patient Problems: Problems Problem Status Onset Ascites Acute
--- NOTE | 2018-09-17 13:02 | SOAPPROG ---
SOAP Progress Note Assessment/Plan: Assessment: 1. OROZCO with cirrhosis 2. Refractory ascites 3. Acute kidney injury in the setting of chronic renal disease 4. Urinary retention 5. TIPS placement Plan: 1. Continue medical mgt of renal dysfunction 2. If creatinine better again tomorrow would try and remove farooq and then stop Albumin/octreotide/midodrine 3. Low sodium/renal diet 4. Monitor LFTs/INR every few days at this point. 09/17/18 13:00 Subjective: CC: Ascites with YADIEL No acute complaints Farooq placed yesterday for urinary retention No abdominal pain Refused lactulose and Kristalose as causes GI upset and vomiting. No confusion. Objective: Vital Signs Temp Pulse Resp BP Pulse Ox 36.4 C 65 18 110/51 L 96 09/17/18 12:00 09/17/18 12:00 09/17/18 12:00 09/17/18 12:00 09/17/18 12:00 Laboratory Results 09/14/18 03:40 09/17/18 03:41 09/16/18 09/17/18 09/18/18 05:59 05:59 05:59 Intake Total 650 950 Output Total 555 700 Balance 95 250 PT 18.2 SEC (12.0-15.0) H 09/17/18 03:41 INR 1.59 (0.83-1.16) H 09/17/18 03:41 Physical Exam - Physical Exam General Appearance: no apparent distress, thin EENT: normal ENT inspection Neck: supple Respiratory: normal breath sounds Cardiac/Chest: regular rate, rhythm, systolic murmur Abdomen: normal bowel sounds, soft, distended, No non-tender, No guarding, No rebound Extremities: No pedal edema Neuro/Psych: alert, oriented x 3, other (No asterixis) ICD10 Worksheet Patient Problems: Problems Problem Status Onset Ascites Acute
[2018-09-17] MEDS ORDERED: PHYTONADIONE 2.5 MG/2.5 ML ORAL UDL PO ONE (13:03)
--- NOTE | 2018-09-17 15:23 | HOSPPROG ---
Hospitalist Progress Note Assessment/Plan: 73 yo M with dx of cirrhosis due to OROZCO presenting with refractory ascites and CKD now s/p TIPS cirrhosis: due to OROZCO, followed by GI and having issues with refractory ascites and renal failure concerning for hepatorenal syndrome now s/p TIPS given worsening creatinine. s/p TIPS not encephalopathic unclear that this is HRS ARF: improved today, prior to octreotide trial of octreotide, midodrine follow as of today, patient and saying the WOULD want dialysis if necessary BPH: dc tamsulosin for now vasodilator urinary retention-Farooq placed. hyperbilirubinemia- likely secondary to tips procedure although LFTs worsened today. back pain: controlled on PO and IV dialudid IP status full code Subjective: cr down to 2.9. case d/w dr jean, [place] Objective: Vital Signs Temp Pulse Resp BP Pulse Ox 36.4 C 65 18 110/51 L 96 09/17/18 12:00 09/17/18 12:00 09/17/18 12:00 09/17/18 12:00 09/17/18 12:00 Laboratory Results 09/14/18 03:40 09/17/18 03:41 09/16/18 09/17/18 09/18/18 05:59 05:59 05:59 Intake Total 650 950 Output Total 555 700 Balance 95 250 PT 18.2 SEC (12.0-15.0) H 09/17/18 03:41 INR 1.59 (0.83-1.16) H 09/17/18 03:41 - Physical Exam Constitutional: no apparent distress, chronically ill appearing Eyes: PERRL, anicteric sclera Ears, Nose, Mouth, Throat: moist mucous membranes, hearing normal Cardiovascular: regular rate and rhythym, no murmur, rub, or gallop Respiratory: no respiratory distress, no rales or rhonchi Gastrointestinal: normoactive bowel sounds, soft, non-tender abdomen, ascites Genitourinary: No farooq in urethra Skin: warm, normal color Musculoskeletal: full muscle strength Neurologic: AAOx3 ICD10 Worksheet Patient Problems: Problems Problem Status Onset Ascites Acute
[2018-09-18] MEDS: ONDANSETRON 4 MG/2 ML VIAL IVP PRN ×3 (03:21→16:19)
[2018-09-18 04:03] LABS: INR 1.65 (0.83-1.16); PROTIME(PATIENT) 18.8 SEC (12.0-15.0)
[2018-09-18] MEDS: ALBUMIN 25% 100 ML IV SCH ×4 (06:49→23:51)
[2018-09-18] MEDS: MIDODRINE HCL 5 MG TAB PO SCH ×3 (08:43→21:20)
[2018-09-18] MEDS: OCTREOTIDE 100 MCG/1 ML INJ SC SCH ×3 (08:44→21:21)
[2018-09-18] MEDS: LACTULOSE 20 GM/30 ML UDCUP PO SCH (08:44)
[2018-09-18] MEDS: PROMETHAZINE HCL 25 MG/ML INJ IVP PRN ×2 (11:01→18:30)
--- NOTE | 2018-09-18 11:02 | HOSPPROG ---
Hospitalist Progress Note Assessment/Plan: 73 yo M with dx of cirrhosis due to OROZCO presenting with refractory ascites and CKD now s/p TIPS cirrhosis: due to OROZCO, followed by GI and having issues with refractory ascites and renal failure concerning for hepatorenal syndrome now s/p TIPS given worsening creatinine. s/p TIPS not encephalopathic unclear that this is HRS ARF: improving w trial of octreotide, midodrine follow BPH: dc tamsulosin for now vasodilator urinary retention-Farooq placed. hyperbilirubinemia- likely secondary to tips procedure although LFTs worsened today. back pain: controlled on PO and IV dialudid IP status full code Subjective: case d/w dr mederos. cr improved Objective: Vital Signs Temp Pulse Resp BP Pulse Ox 36.6 C 66 18 117/60 95 09/18/18 08:00 09/18/18 08:00 09/18/18 08:00 09/18/18 08:00 09/18/18 08:00 Laboratory Results 09/14/18 03:40 09/18/18 03:45 09/17/18 09/18/18 09/19/18 05:59 05:59 05:59 Intake Total 950 200 650 Output Total 700 550 Balance 250 -350 650 PT 18.8 SEC (12.0-15.0) H 09/18/18 03:45 INR 1.65 (0.83-1.16) H 09/18/18 03:45 - Physical Exam Constitutional: no apparent distress, appears nourished Eyes: PERRL, anicteric sclera Ears, Nose, Mouth, Throat: moist mucous membranes, hearing normal Cardiovascular: regular rate and rhythym, no murmur, rub, or gallop Respiratory: no respiratory distress, no rales or rhonchi Gastrointestinal: normoactive bowel sounds, No ascites Genitourinary: no bladder fullness, No farooq in urethra Skin: warm, normal color Musculoskeletal: full muscle strength Neurologic: AAOx3 Psychiatric: interacting appropriately, not anxious ICD10 Worksheet Patient Problems: Problems Problem Status Onset Ascites Acute
--- NOTE | 2018-09-18 11:20 | SOAPPROG ---
SOAP Progress Note Assessment/Plan: Assessment: OROZCO with recent TIPS YADIEL, responding to therapy like HRS borderline oliguria creat overall improved Plan: diurese continue octreotide and proamitine for now questions regarding transplantation, I suggested they consider setting up an appt with the [facility] transplant team to have their questions answered 09/18/18 11:16 Subjective: ill appearing tired had some nausea and vomiting earlier today sitting up on edge of bed no cp, SOB overall improved spirits good enough to give me a hard time! Objective: Vital Signs Temp Pulse Resp BP Pulse Ox 36.6 C 66 18 117/60 95 09/18/18 08:00 09/18/18 08:00 09/18/18 08:00 09/18/18 08:00 09/18/18 08:00 Laboratory Results 09/14/18 03:40 09/18/18 03:45 09/17/18 09/18/18 09/19/18 05:59 05:59 05:59 Intake Total 950 200 650 Output Total 700 550 Balance 250 -350 650 PT 18.8 SEC (12.0-15.0) H 09/18/18 03:45 INR 1.65 (0.83-1.16) H 09/18/18 03:45 Physical Exam - Physical Exam General Appearance: alert, other (chronically ill appearing) Neck: other (JVD) Respiratory: No rhonchi, No wheezing, No pleural rub Cardiac/Chest: regular rate, rhythm, edema, systolic murmur, No friction rub Abdomen: normal bowel sounds, ascites Skin: other (jaundice) Extremities: swelling Neuro/Psych: alert, normal mood/affect, oriented x 3 ICD10 Worksheet Patient Problems: Problems Problem Status Onset Ascites Acute
[2018-09-18] MEDS ORDERED: BUMETANIDE 1 MG TAB PO SCH (11:30)
--- NOTE | 2018-09-18 13:47 | SOAPPROG ---
SOAP Progress Note Assessment/Plan: Assessment: 1. Nausea with vomiting 2. YADIEL 3. Refractory ascites s/p TIPS placement 4. Cirrhosis Recommendations: 1. Treat nausea symptomatically for now. May be due to uremia. 2. Fairly sleepy after anti-emetics given. reports no change in mentation or confusion prior to anti-emetics 3. Monitor creatinine, UOP and lytes with ongoing albumin, midodrine and octreotide for now as improving 4. If continues to exhibit N/V may need EGD if uremia and renal function improving but symptoms not 5. No PPI with renal injury 6. Zantac 150mg daily 09/18/18 13:42 09/18/18 13:48 Subjective: CC: Nausea and vomiting Denies abdominal pain Objective: Vital Signs Temp Pulse Resp BP Pulse Ox 36.4 C 62 18 117/57 L 96 09/18/18 12:00 09/18/18 12:00 09/18/18 12:00 09/18/18 12:00 09/18/18 12:00 Laboratory Results 09/14/18 03:40 09/18/18 03:45 09/17/18 09/18/18 09/19/18 05:59 05:59 05:59 Intake Total 950 200 650 Output Total 700 550 Balance 250 -350 650 PT 18.8 SEC (12.0-15.0) H 09/18/18 03:45 INR 1.65 (0.83-1.16) H 09/18/18 03:45 Physical Exam - Physical Exam General Appearance: other (Sleeping but arousable.) Neck: supple Respiratory: lungs clear, normal breath sounds Cardiac/Chest: regular rate, rhythm, systolic murmur Abdomen: non-tender, soft, No guarding, No rebound Skin: warm/dry ICD10 Worksheet Patient Problems: Problems Problem Status Onset Ascites Acute
--- NOTE | 2018-09-18 15:34 | ASMTCMCOM ---
CM Note CM Note Notes: 09/18/2018 Case Management Note Phone call from [facility]; pt is open with [facility]. Met w/pt and Lillian [phone]. Pt slept through meeting. Lillian requested meeting with [facility] tomorrow at 1300. Notified [facility]. Faxed updates via [employer] Therapies recommending home. Lillian in agreement. Case Management d[facility] poc[facility] Case Management to follow. Date Signed: 09/18/2018 03:33 PM Electronically Signed By:Yojana Bucio RN
[2018-09-18] MEDS: RIFAXIMIN 550 MG TAB PO SCH (21:20)
[2018-09-19 04:52] LABS: INR 1.78 (0.83-1.16); PROTIME(PATIENT) 19.9 SEC (12.0-15.0)
[2018-09-19] MEDS: ALBUMIN 25% 100 ML IV SCH ×3 (06:37→17:52)
[2018-09-19] MEDS: ACETAMINOPHEN 500 MG TAB PO PRN (06:39)
[2018-09-19] MEDS ORDERED: RANITIDINE SYRUP 15 MG/1 ML UDSYR PO SCH (09:00)
[2018-09-19] MEDS ORDERED: BUMETANIDE 1 MG TAB PO SCH (09:00)
--- NOTE | 2018-09-19 09:38 | SOAPPROG ---
SOAP Progress Note Assessment/Plan: Assessment: 1. Nausea with vomiting- resolved today 2. YADIEL, oliguric 3. Refractory ascites s/p TIPS placement 4. Cirrhosis 5. Coagulopathy 6. Anemia Recommendations: 1. Continue HRS renal protocol 2. Will need to see his Creatinine improve and coagulopathy and cholestasis stabalize before I feel we can discharge him 3. Unclear at this point what direction he will take regarding prognosis but I am concerned he may not improve. 4. I also feel a liver transplant to definitively correct cirrhosis is less probable but would still need to be considered. I would start with a cardiac U/ S as if this shows sig pulmonary HTN this would preclude a transplant w/u. 5. I am hopeful that a majority of his renal disease is indeed contrast and pre- renal which could improve, where HRS from decompensated liver disease related to TIPS diversion of portal blood flow is more problematic. 6. May need doppler U/S of TIPS and recheck of ascites in a few days. 7. Anemia is likely multifactorial without active bleeding. Placed on Zantac for GI prophylaxis and will monitor closely for melena 8. Continue xifaxan monotherapy for encephalopathy prophylaxis. 9. I will need to discuss dialysis options with renal if he worsens (as he had perfusional related kidney disease pre-TIPS and seems to be tolerating the TIPs well from a liver perfusion standpoint (no transaminitis and mild bump in coagulopathy) as the cause of his worsening renal disease again is contrast and volume from the procedure. 09/19/18 09:23 09/19/18 09:58 Subjective: CC: no further N/V eating breakfast More edematous today Looks like he also has more ascites today Objective: Vital Signs Temp Pulse Resp BP Pulse Ox 36.7 C 59 L 18 122/60 H 95 09/19/18 07:19 09/19/18 07:19 09/19/18 07:19 09/19/18 07:19 09/19/18 07:19 Laboratory Results 09/19/18 03:28 09/19/18 03:28 09/18/18 09/19/18 09/20/18 05:59 05:59 05:59 Intake Total 200 850 Output Total 550 550 Balance -350 300 PT 19.9 SEC (12.0-15.0) H 09/19/18 03:28 INR 1.78 (0.83-1.16) H 09/19/18 03:28 Physical Exam - Physical Exam General Appearance: no apparent distress, thin EENT: pharynx normal Neck: supple Respiratory: lungs clear Cardiac/Chest: regular rate, rhythm Abdomen: soft, distended, ascites, No organomegaly, No guarding, No rebound Skin: warm/dry Extremities: pedal edema ICD10 Worksheet Patient Problems: Problems Problem Status Onset Ascites Acute
[2018-09-19] MEDS: RIFAXIMIN 550 MG TAB PO SCH ×2 (09:46→21:38)
[2018-09-19] MEDS: FAMOTIDINE 20 MG TAB PO SCH (09:46)
[2018-09-19] MEDS: MIDODRINE HCL 5 MG TAB PO SCH ×3 (09:47→21:38)
[2018-09-19] MEDS: OCTREOTIDE 100 MCG/1 ML INJ SC SCH ×3 (09:48→21:38)
--- NOTE | 2018-09-19 11:09 | SOAPPROG ---
SOAP Progress Note Assessment/Plan: Assessment: OROZCO with recent TIPS YADIEL, responding to therapy like HRS borderline oliguria creat overall improved, but seems to be leveling off in mid to high twos Plan: diurese, will increase Bumex to BID continue octreotide and proamitine for now, will increase proam to 7.5 mg TID questions regarding transplantation, I suggested they consider setting up an appt with the [facility] transplant team to have their questions answered wants to go home, would like to see how he does with new med doses before he leaves gave him my card for follow up, he lives in [place] 09/18/18 11:16 09/19/18 11:06 Subjective: wants to go home family at bedside still some weakness and SOB, but says he feels overall better no cp nausea or vomiting appetite picking up energy better today Objective: Vital Signs Temp Pulse Resp BP Pulse Ox 36.7 C 59 L 18 122/60 H 95 09/19/18 07:19 09/19/18 07:19 09/19/18 07:19 09/19/18 07:19 09/19/18 07:19 Laboratory Results 09/19/18 03:28 09/19/18 03:28 09/18/18 09/19/18 09/20/18 05:59 05:59 05:59 Intake Total 200 850 Output Total 550 550 Balance -350 300 PT 19.9 SEC (12.0-15.0) H 09/19/18 03:28 INR 1.78 (0.83-1.16) H 09/19/18 03:28 Physical Exam - Physical Exam General Appearance: thin, other (chronically ill appearing) Neck: normal inspection Respiratory: rales, No rhonchi, No wheezing Cardiac/Chest: regular rate, rhythm, edema, systolic murmur Abdomen: normal bowel sounds, non-tender, distended, other (ascites) Skin: jaundice Extremities: swelling Neuro/Psych: alert, normal mood/affect, oriented x 3 ICD10 Worksheet Patient Problems: Problems Problem Status Onset Ascites Acute
[2018-09-19] MEDS ORDERED: traMADol 50 MG TAB PO PRN (12:00)
--- NOTE | 2018-09-19 14:03 | HOSPPROG ---
Hospitalist Progress Note Assessment/Plan: 73 yo M with dx of cirrhosis due to OROZCO presenting with refractory ascites and CKD now s/p TIPS cirrhosis: due to OROZCO, followed by GI and having issues with refractory ascites and renal failure concerning for hepatorenal syndrome now s/p TIPS given worsening creatinine. s/p TIPS not encephalopathic abdomen bigger today u/s to eval tips hold diuretics for now as would like to understand the trajectory of his cr given concern for HRS ARF: improving w trial of octreotide, midodrine follow BPH: dc tamsulosin for now vasodilator urinary retention-Farooq placed. hyperbilirubinemia- likely secondary to tips procedure although LFTs worsened today. back pain: controlled IP status full code Subjective: case d/w dr mederos and dr walker. cr up a bit but has been started on diuretics. meeting w [facility] care when I seen him Objective: Vital Signs Temp Pulse Resp BP Pulse Ox 36.4 C 57 L 15 130/61 H 97 09/19/18 11:31 09/19/18 11:31 09/19/18 11:31 09/19/18 11:31 09/19/18 11:31 Laboratory Results 09/19/18 03:28 09/19/18 03:28 09/18/18 09/19/18 09/20/18 05:59 05:59 05:59 Intake Total 200 850 Output Total 550 550 Balance -350 300 PT 19.9 SEC (12.0-15.0) H 09/19/18 03:28 INR 1.78 (0.83-1.16) H 09/19/18 03:28 - Physical Exam Constitutional: no apparent distress, appears nourished Eyes: PERRL, anicteric sclera Ears, Nose, Mouth, Throat: moist mucous membranes, hearing normal Cardiovascular: regular rate and rhythym, no murmur, rub, or gallop Respiratory: no respiratory distress, no rales or rhonchi Gastrointestinal: normoactive bowel sounds, ascites, other (abdomen seems more distended) Genitourinary: no bladder fullness, No farooq in urethra Skin: warm, normal color Musculoskeletal: No full muscle strength Neurologic: AAOx3 ICD10 Worksheet Patient Problems: Problems Problem Status Onset Ascites Acute
[2018-09-20] MEDS: ALBUMIN 25% 100 ML IV SCH ×2 (00:38→06:41)
--- NOTE | 2018-09-20 08:00 | PDPCPN ---
Palliative Care Progress Note Assessment/Plan: Assessment: PALLIATIVE CARE NOTE Name: Teja Nichols : 1945 Age: 73yo male Classification: Palliative Care Patient Location: [facility] Date: 09/05/2018 PCP/Specialists: 1. Dk Kelly PCP 2. 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 OROZCO CC: Request from hospital for inpatient palliative visit HPI: Diagnosed with OROZCO 2 years ago with increased abdominal distension presently requiring multiple paracentesis. He developed refractory ascites. He was admitted to the hospital for a TIPS procedure which has been performed. Since the procedure his AST, ALT, alkaline phosphatase have normalized. His bilirubin remains slightly elevated. Aggressive diuresis has increased his creatinine. There is concern for hepatorenal syndrome as well. Extensive discussion with patient his and daughter regarding goals of care. Discussed with his and daughter that the underlying disease process is not cured by the TIPS procedure and that he will continue to have slow decline. His expresses understanding that at some point he will require comfort measures only. PMH: COPD, CAD, DM2, BPH, hepatic encephalopathy, edema Allergies: NKDA Medications: Doxazosin 4mg, Levothyroxine 100mcg, Diuretics on hold 2/2 renal function. Family Hx: father (), mother ( - OROZCO, DM2), maternal grandfather with OROZCO. Social Hx: to [place]. No tobacco or ETOH, using edible MJ. FH and SH obtained from patient and family Advance Directives: currently full cor. Not discussed further at this meeting. MDPOA: 1) Simeon Velez Value Based Goals: 1. I have been an active man all my life, I have worked hard and now they won' t even let me drive. I want to be able to do some simple things like work around my house and enjoy my family again. MODIFIED [place] SYMPTOM ASSESSMENT SCALE 0-none; 1-3 mild; 4-6 moderate; 7-10 severe Unable to Respond: No Delirium: 0-none Depression: 4-Mod Anxiety: 3-Mild Tiredness (fatigue): 4-Mod Drowsiness (sleepiness): 0-none Pain: 1 Nausea: 0none Anorexia: 6-Mod Shortness of Breath: 3-Mild with activity Secretions: 0-none Constipation: 0-none ACTIVE SYMPTOMS/ASSESSMENT 1. OROZCO K 75.81: Progressive disease with refractory ascites. Now status post TIPS procedure with improvement in liver function tests. Abdominal ultrasound will be performed to evaluate TIPS. 2. Ascites R 18.8: Abdomen slightly larger today. 3. Acute renal failure N 17.9: Diuretics are being held. Concern for hepatorenal failure. 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 TIME SPENT: [id number] 35 min >50% of the time spent counseling, educating and coordinating the above topics. Stan Palmer [facility] Plan: 09/20/18 08:00 Objective: Vital Signs Temp Pulse Resp BP Pulse Ox 36.7 C 62 17 124/63 H 94 09/20/18 07:11 09/20/18 07:11 09/20/18 07:11 09/20/18 07:11 09/20/18 07:11 Laboratory Results 09/19/18 03:28 09/20/18 03:55 09/19/18 09/20/18 09/21/18 05:59 05:59 05:59 Intake Total 850 400 Output Total 550 500 Balance 300 -100 PT 19.9 SEC (12.0-15.0) H 09/19/18 03:28 INR 1.78 (0.83-1.16) H 09/19/18 03:28 ICD10 Worksheet Patient Problems: Problems Problem Status Onset Ascites Acute
[2018-09-20] MEDS: RIFAXIMIN 550 MG TAB PO SCH ×2 (08:30→20:17)
[2018-09-20] MEDS: MIDODRINE HCL 5 MG TAB PO SCH ×3 (08:31→20:36)
[2018-09-20] MEDS: FAMOTIDINE 20 MG TAB PO SCH (08:31)
[2018-09-20] MEDS: OCTREOTIDE 100 MCG/1 ML INJ SC SCH ×3 (08:32→20:38)
--- NOTE | 2018-09-20 09:29 | SOAPPROG ---
GALLO Progress Note Assessment/Plan: Assessment: 1. Cirrhosis 2. Acute on chronic renal injury 3. Ascites 4. Edema Plan: 1. No diuretics but I suspect he may need some low dose diuretic intermediate 2. Low sodium diet 3. Stop IV albumin. Monitor albumin and if less than 3.0 would administer 4. Continue octreotide and midodrine for now 5. Check AM LFTs, INR, and BMP 6. D/C farooq 7. Hopefully will improve enough in the next few days for discharge to home 8. Outpatient hepatology evaluation for transplant considerations will be arranged. I have spoke with the [facility] hepatology department and they will evaluate him for this possibility if his renal and liver stabilize after TIPS 09/20/18 09:25 Subjective: CC: No acute events Farooq is uncomfortable Denies any further N/V No abdominal pain. Objective: Vital Signs Temp Pulse Resp BP Pulse Ox 36.7 C 62 17 124/63 H 94 09/20/18 07:11 09/20/18 07:11 09/20/18 07:11 09/20/18 07:11 09/20/18 07:11 Laboratory Results 09/19/18 03:28 09/20/18 03:55 09/19/18 09/20/18 09/21/18 05:59 05:59 05:59 Intake Total 850 400 Output Total 550 500 Balance 300 -100 PT 19.9 SEC (12.0-15.0) H 09/19/18 03:28 INR 1.78 (0.83-1.16) H 09/19/18 03:28 Physical Exam - Physical Exam General Appearance: no apparent distress, thin EENT: pharynx normal Neck: supple Respiratory: lungs clear Cardiac/Chest: regular rate, rhythm, systolic murmur Abdomen: normal bowel sounds, non-tender, soft, ascites, No guarding, No rebound , No mass Skin: warm/dry Neuro/Psych: alert, normal mood/affect, oriented x 3 ICD10 Worksheet Patient Problems: Problems Problem Status Onset Ascites Acute
--- NOTE | 2018-09-20 10:42 | HOSPPROG ---
Hospitalist Progress Note Assessment/Plan: 73 yo M with dx of cirrhosis due to OROZCO presenting with refractory ascites and CKD now s/p TIPS cirrhosis: due to OROZCO, followed by GI and having issues with refractory ascites and renal failure concerning for hepatorenal syndrome now s/p TIPS given worsening creatinine. s/p TIPS not encephalopathic abdomen bigger today u/s to eval tips- it is patent hold diuretics for now as would like to understand the trajectory of his cr given concern for HRS ARF: improving w trial of octreotide, midodrine follow cr stable at 2.9 BPH: dc tamsulosin for now vasodilator urinary retention-remove farooq and restart flomax hyperbilirubinemia- likely secondary to tips procedure although LFTs worsened today. back pain: controlled IP status full code Subjective: case d.w dr walker. TIPS patent Objective: Vital Signs Temp Pulse Resp BP Pulse Ox 36.7 C 62 17 124/63 H 94 09/20/18 07:11 09/20/18 07:11 09/20/18 07:11 09/20/18 07:11 09/20/18 07:11 Laboratory Results 09/19/18 03:28 09/20/18 03:55 09/19/18 09/20/18 09/21/18 05:59 05:59 05:59 Intake Total 850 400 Output Total 550 500 Balance 300 -100 PT 19.9 SEC (12.0-15.0) H 09/19/18 03:28 INR 1.78 (0.83-1.16) H 09/19/18 03:28 - Physical Exam Constitutional: no apparent distress, appears nourished Eyes: PERRL, icteric sclera Ears, Nose, Mouth, Throat: moist mucous membranes, hearing normal Cardiovascular: regular rate and rhythym, no murmur, rub, or gallop Respiratory: no respiratory distress, no rales or rhonchi Gastrointestinal: normoactive bowel sounds, soft, non-tender abdomen, ascites Genitourinary: farooq in urethra Skin: warm, normal color Musculoskeletal: full muscle strength Neurologic: AAOx3 ICD10 Worksheet Patient Problems: Problems Problem Status Onset Ascites Acute
[2018-09-20] MEDS: TAMSULOSIN HCL 0.4 MG CAP PO SCH (10:57)
--- NOTE | 2018-09-20 11:56 | SOAPPROG ---
SOAP Progress Note Assessment/Plan: Assessment/Plan: YADIEL on CKD 3: Cr up from 1.9 to now 3.1, nonoliguric, lytes ok, now Cr 2.9 and stable there over the past few days. His urine studies suggest prerenal etiology from TIPS and large volume paracentesis vs HRS. - Pt has no emergent HD needs and is likely to avoid HD this hospitalization. - I did discuss the possibility of dialysis in the future, and overall he would be a poor candidate for HD and it would not significantly change his overall course given his liver disease with a MELD of 20 at the beginning of this admission. If he was to pursue liver transplant and be listed, it could be considered. - Will continue midodrine and octreotide. - Will d/c albumin as level is improved and he is getting more swollen. - Will continue to monitor. - Avoid hypotension and nephrotoxins. Metabolic acidosis: in setting of YADIEL, will continue to monitor. Anemia: no need for epo, will continue to monitor. Hypervolemia: pt having more ascites and swelling in legs than earlier this week. Will d/c albumin and continue to monitor, could consider restarting diuretic tomorrow. Subjective: No acute events overnight. Pt states he had some mild nausea this am but no longer. He has some swelling in legs but denies any pain, feels abdomen is about the same. Objective: Vital Signs Temp Pulse Resp BP Pulse Ox 36.4 C 63 17 120/54 L 96 09/20/18 11:06 09/20/18 11:06 09/20/18 11:06 09/20/18 11:06 09/20/18 11:06 Laboratory Results 09/19/18 03:28 09/20/18 03:55 09/19/18 09/20/18 09/21/18 05:59 05:59 05:59 Intake Total 850 400 Output Total 550 500 350 Balance 300 -100 -350 PT 19.9 SEC (12.0-15.0) H 09/19/18 03:28 INR 1.78 (0.83-1.16) H 09/19/18 03:28 General: alert and oriented, no acute distress Eyes: EOMI, PERRL OP: CLear CV: RRR Resp: nonlabored respirations on RA Abd: Soft, distended, +ascites, NTTP Ext: +1-2 edema BLE Neuro: CN II-XII grossly intact Psych: cooperative ICD10 Worksheet Patient Problems: Problems Problem Status Onset Ascites Acute
[2018-09-20] MEDS: PROMETHAZINE HCL 25 MG/ML INJ IVP PRN (12:10)
[2018-09-21 04:37] LABS: INR 1.75 (0.83-1.16); PROTIME(PATIENT) 19.6 SEC (12.0-15.0)
[2018-09-21] MEDS: RIFAXIMIN 550 MG TAB PO SCH ×2 (09:21→23:26)
[2018-09-21] MEDS: FAMOTIDINE 20 MG TAB PO SCH (09:21)
[2018-09-21] MEDS: TAMSULOSIN HCL 0.4 MG CAP PO SCH (09:21)
[2018-09-21] MEDS: MIDODRINE HCL 5 MG TAB PO SCH ×3 (09:21→23:26)
[2018-09-21] MEDS: OCTREOTIDE 100 MCG/1 ML INJ SC SCH ×3 (09:21→23:24)
[2018-09-21] MEDS: ONDANSETRON 4 MG/2 ML VIAL IVP PRN ×2 (10:30→21:55)
--- NOTE | 2018-09-21 11:17 | SOAPPROG ---
SOAP Progress Note Assessment/Plan: Assessment/Plan: YADIEL on CKD 3: Cr up from 1.9 to now 3.1, nonoliguric, lytes ok, Cr had been stable at 2.9 and now is again 3.1, essentially not changed. His urine studies suggest prerenal etiology from TIPS and large volume paracentesis vs HRS. - Pt has no emergent HD needs at this time but may be moving in that direction. - I did discuss the possibility of dialysis in the future, and overall he would be a poor candidate for HD and it would not significantly change his overall course given his liver disease with a MELD of 20 at the beginning of this admission. If he was to pursue liver transplant and be listed, it could be considered. Have discussed with Dr. Goldman today, and he will continue to communicate with [facility] and possibly consider transfer next week there for evaluation. - Will continue midodrine and octreotide. - Will give a dose of albumin and Lasix today. - Will order bladder scans, would replace farooq catheter if retention noted. - Will continue to monitor. - Avoid hypotension and nephrotoxins. Metabolic acidosis: in setting of YADIEL, will continue to monitor. Anemia: no need for epo, will continue to monitor. Hypervolemia: pt having more ascites and swelling in legs than earlier this week. Will give a dose of albumin and Lasix today and see his response. Subjective: No acute events overnight. Pt having nausea this am, requiring IV antiemetics. He states he wants to go home. Objective: Vital Signs Temp Pulse Resp BP Pulse Ox 36.6 C 68 18 112/61 95 09/21/18 07:52 09/21/18 07:52 09/21/18 07:52 09/21/18 07:52 09/21/18 07:52 Laboratory Results 09/21/18 03:26 09/21/18 03:26 09/20/18 09/21/18 09/22/18 05:59 05:59 05:59 Intake Total 400 650 Output Total 500 550 Balance -100 100 PT 19.6 SEC (12.0-15.0) H 09/21/18 03:26 INR 1.75 (0.83-1.16) H 09/21/18 03:26 General: alert and oriented, no acute distress Eyes: EOMI, PERRL OP: Clear CV: RRR Resp: nonlabored respirations on RA Abd: Soft, NTTP, +worsening distention and ascites Ext: +2 edema BLE Neuro: CN II-XII grossly intact Psych: cooperative ICD10 Worksheet Patient Problems: Problems Problem Status Onset Ascites Acute
--- NOTE | 2018-09-21 11:37 | SOAPPROG ---
SOAP Progress Note Assessment/Plan: Assessment: 1. Cirrhosis 2. Acute on chronic renal injury 3. Ascites 4. Edema Plan: 1. Discussed at length with nephrology and will try diuresis today with IV albumin and lasix as he is redeveloping ascites and edema 2. Also spoke with [facility] hepatology and they are willing to evaluate him if the need should present itself 3. Monitor UOP and creatinine with diuresis 4. Continue HRS protocol 5. Continue xifaxan monotherapy for HE as refuses lactulose/Kristalose because of side effects 6. If concern for bladder outlet obstruction now that farooq has been removed would check post-void residual 7. Will follow 09/21/18 11:30 Subjective: CC: Intermittent nausea Worsening Cr Edematous more today Farooq removed. Objective: Vital Signs Temp Pulse Resp BP Pulse Ox 36.6 C 68 18 112/61 95 09/21/18 07:52 09/21/18 07:52 09/21/18 07:52 09/21/18 07:52 09/21/18 07:52 Laboratory Results 09/21/18 03:26 09/21/18 03:26 09/20/18 09/21/18 09/22/18 05:59 05:59 05:59 Intake Total 400 650 Output Total 500 550 Balance -100 100 PT 19.6 SEC (12.0-15.0) H 09/21/18 03:26 INR 1.75 (0.83-1.16) H 09/21/18 03:26 Physical Exam - Physical Exam General Appearance: cachetic, thin Neck: supple Respiratory: lungs clear Cardiac/Chest: regular rate, rhythm, systolic murmur Abdomen: non-tender, soft, distended, ascites, No guarding, No rebound Extremities: pedal edema Neuro/Psych: alert, oriented x 3 ICD10 Worksheet Patient Problems: Problems Problem Status Onset Ascites Acute
[2018-09-21] MEDS ORDERED: ALBUMIN 25% 100 ML IV ONE (12:00)
[2018-09-21] MEDS ORDERED: FUROSEMIDE 40 MG/4 ML VIAL IVP ONE (12:00)
[2018-09-21] MEDS ORDERED: PROCHLORPERAZINE MALEATE 5 MG TAB PO PRN (14:55)
--- NOTE | 2018-09-21 14:55 | HOSPPROG ---
Hospitalist Progress Note Assessment/Plan: 73 yo M with dx of cirrhosis due to OROZCO presenting with refractory ascites and CKD now s/p TIPS cirrhosis: due to OROZCO, followed by GI and having issues with refractory ascites and renal failure concerning for hepatorenal syndrome now s/p TIPS given worsening creatinine. s/p TIPS not encephalopathic abdomen bigger today u/s to eval tips- it is patent diuretcis restarted ARF: improving w trial of octreotide, midodrine follow cr stable at 2.9 09/21: cr increased to 3.1 CONTINUE midodrine/octreotide/albumin/lasix over weekend if cr worsens, reasonable to consider hospice family considering patient keep saying he just wants to go home BPH: tamsulosin restarted urinary retention-remove farooq and restart flomax hyperbilirubinemia- likely secondary to tips procedure although LFTs worsened today. back pain: controlled IP status full code Subjective: case d/w dr walker Objective: Vital Signs Temp Pulse Resp BP Pulse Ox 36.3 C 63 17 108/55 L 95 09/21/18 12:00 09/21/18 12:00 09/21/18 12:00 09/21/18 12:00 09/21/18 12:00 Laboratory Results 09/21/18 03:26 09/21/18 03:26 09/20/18 09/21/18 09/22/18 05:59 05:59 05:59 Intake Total 400 650 Output Total 500 550 50 Balance -100 100 -50 PT 19.6 SEC (12.0-15.0) H 09/21/18 03:26 INR 1.75 (0.83-1.16) H 09/21/18 03:26 - Physical Exam Constitutional: no apparent distress, chronically ill appearing Eyes: PERRL, icteric sclera Ears, Nose, Mouth, Throat: moist mucous membranes, hearing normal Cardiovascular: no murmur, rub, or gallop, systolic murmur Respiratory: no respiratory distress, no rales or rhonchi Gastrointestinal: normoactive bowel sounds, soft, non-tender abdomen Genitourinary: no bladder fullness, No farooq in urethra Skin: warm, normal color Musculoskeletal: full muscle strength Neurologic: AAOx3 ICD10 Worksheet Patient Problems: Problems Problem Status Onset Ascites Acute
[2018-09-22] MEDS: ONDANSETRON 4 MG/2 ML VIAL IVP PRN (09:32)
[2018-09-22] MEDS: MIDODRINE HCL 5 MG TAB PO SCH ×3 (10:22→22:37)
[2018-09-22] MEDS: RIFAXIMIN 550 MG TAB PO SCH ×2 (10:22→22:36)
[2018-09-22] MEDS: TAMSULOSIN HCL 0.4 MG CAP PO SCH (10:22)
[2018-09-22] MEDS: OCTREOTIDE 100 MCG/1 ML INJ SC SCH ×3 (10:23→22:36)
[2018-09-22] MEDS: FAMOTIDINE 20 MG TAB PO SCH (10:23)
--- NOTE | 2018-09-22 11:30 | SOAPPROG ---
SOAP Progress Note Assessment/Plan: Assessment: 1. arf/crf: overall course most c/w HRS, though did have sig proteinuria which is not usually a feature. Will repeat this. Creat stable but no sig response to lasix yesterday. If OLT is realistic possibility this should be pursued and therefore I would support txfer to [facility] as discussed. Cont midodrine/octreotide for now. 2. Overload: will start po bumex in interest of minimizing edema formation. Unable to resume spironolactone due to K. 3. Proteinuria: will repeat this along with UA. Serologies have been negative here. Would not be good candidate for bx given coagulopathies. 4. Cirrhosis: as above, I think transplant eval next week would be prudent if it is a realistic option. Otherwise he is probably faced with considering hospice care in near future. Plan: 09/22/18 11:26 Subjective: No particular c/o. Family present. Objective: Vital Signs Temp Pulse Resp BP Pulse Ox 36.3 C 62 16 115/58 L 96 09/22/18 07:37 09/22/18 07:37 09/22/18 07:37 09/22/18 07:37 09/22/18 07:37 Laboratory Results 09/21/18 03:26 09/22/18 03:34 09/21/18 09/22/18 09/23/18 05:59 05:59 05:59 Intake Total 650 800 Output Total 550 425 600 Balance 100 375 -600 PT 19.6 SEC (12.0-15.0) H 09/21/18 03:26 INR 1.75 (0.83-1.16) H 09/21/18 03:26 Physical Exam - Physical Exam General Appearance: alert, no apparent distress Respiratory: normal breath sounds Cardiac/Chest: regular rate, rhythm Abdomen: non-tender, soft Extremities: pedal edema ICD10 Worksheet Patient Problems: Problems Problem Status Onset Ascites Acute
[2018-09-22] MEDS: ALBUMIN 25% 100 ML IV SCH ×2 (12:47→18:43)
--- NOTE | 2018-09-22 13:39 | SOAPPROG ---
SOAP Progress Note Assessment/Plan: Assessment:Plan: 1) Liver - HRS, s/p TIPS with recurrent ascites. May need OLT eval - Dr Goldman speaking with [facility] educational sign language interpreter 2) renal - as per nephrology, HRS, midodrine and octreotide as per renal, cr down slightly 3) HE - Xifaxan as monotherapy 4) ascites - diuretics per renal, as above Subjective: CC - ESLD, ascites, HRS pt and family in room he says abdo feels ok, ascites not causing pain recognizes need for OLT eval long discussion about OLT Objective: Vital Signs Temp Pulse Resp BP Pulse Ox 36.3 C 68 18 117/56 L 96 09/22/18 11:43 09/22/18 11:43 09/22/18 11:43 09/22/18 11:43 09/22/18 11:43 Laboratory Results 09/21/18 03:26 09/22/18 03:34 09/21/18 09/22/18 09/23/18 05:59 05:59 05:59 Intake Total 650 800 200 Output Total 550 425 600 Balance 100 375 -400 PT 19.6 SEC (12.0-15.0) H 09/21/18 03:26 INR 1.75 (0.83-1.16) H 09/21/18 03:26 CTA decreased no rhonchi or rales S1S2 +BS soft nt ICD10 Worksheet Patient Problems: Problems Problem Status Onset Ascites Acute
[2018-09-22] MEDS: BUMETANIDE 1 MG TAB PO SCH (15:45)
--- NOTE | 2018-09-22 16:25 | HOSPPROG ---
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, s/p TIPS for intractable ascites * ARF - possible hepatorenal syndrome -possible transfer to [facility] for transplant eval -midodrine/octreotide/IV albumin -restart diuretic per renal * Urinary retention due to BPH -failed farooq trial - now farooq back in -plan discharge with catheter and outpatient urology follow-up -on Flomax, add proscar * Proteinuria -work-up per nephrology * Hepatic encephalopathy (not acute) -Xifaxan Subjective: Farooq replace due to urinary retention - no longer causing pain Objective: Vital Signs Temp Pulse Resp BP Pulse Ox 36.4 C 70 20 116/56 L 95 09/22/18 15:25 09/22/18 15:25 09/22/18 15:25 09/22/18 15:25 09/22/18 15:25 Laboratory Results 09/21/18 03:26 09/22/18 03:34 09/21/18 09/22/18 09/23/18 05:59 05:59 05:59 Intake Total 650 800 200 Output Total 550 425 600 Balance 100 375 -400 PT 19.6 SEC (12.0-15.0) H 09/21/18 03:26 INR 1.75 (0.83-1.16) H 09/21/18 03:26 High risk due to threat to life - hepatorenal syndrome - Physical Exam Constitutional: no apparent distress, appears nourished, not in pain Cardiovascular: regular rate and rhythym, no murmur, rub, or gallop Respiratory: no respiratory distress, no rales or rhonchi, clear to auscultation Gastrointestinal: ascites, distension, No tenderness, No guarding, No rebound Skin: no rashes or abrasions, no fluctuance, no induration Neurologic: AAOx3, sensation intact bilaterally Psychiatric: interacting appropriately, not anxious, not encephalopathic, thought process linear ICD10 Worksheet Patient Problems: Problems Problem Status Onset Ascites Acute
[2018-09-23] MEDS ORDERED: POLYETHYLENE GLYCOL 3350 17 GM PKT PO PRN (00:04)
[2018-09-23] MEDS ORDERED: LACTULOSE 20 GM/30 ML UDCUP PO PRN (00:04)
[2018-09-23] MEDS: ALBUMIN 25% 100 ML IV SCH ×2 (00:26→06:36)
[2018-09-23] MEDS: ONDANSETRON 4 MG/2 ML VIAL IVP PRN (06:35)
[2018-09-23] MEDS ORDERED: FINASTERIDE 5 MG TAB PO SCH (09:00)
[2018-09-23] MEDS: PROMETHAZINE HCL 25 MG/ML INJ IVP PRN (09:43)
[2018-09-23] MEDS: RIFAXIMIN 550 MG TAB PO SCH (10:02)
[2018-09-23] MEDS: TAMSULOSIN HCL 0.4 MG CAP PO SCH (10:03)
[2018-09-23] MEDS: BUMETANIDE 1 MG TAB PO SCH (10:03)
[2018-09-23] MEDS: OCTREOTIDE 100 MCG/1 ML INJ SC SCH (10:03)
[2018-09-23] MEDS: FAMOTIDINE 20 MG TAB PO SCH (10:03)
[2018-09-23] MEDS: MIDODRINE HCL 5 MG TAB PO SCH (10:03)
--- NOTE | 2018-09-23 12:20 | SOAPPROG ---
SOFREEMAN Progress Note Assessment/Plan: Assessment: 1. arf/crf: overall course c/w HRS but has nephrotic-range proteinuria and active sediment, which are not usually features. Will perform 24hr urine for confirmation and perform serologic eval. May need bx, this would be high risk given liver dz and coagulopathy so would need to discuss feasibility with IR if needed. Creat stable on po bumex. Cont midodrine/octreotide for now but would hold off on transfer for OLT eval until renal issues more clearly delineated. 2. Overload: on po bumex to minimize edema formation. Unable to resume spironolactone due to K. 3. Proteinuria: nephrotic-range based on p/c, will do 24hr urine to confirm. Additional serologies sent. Could need bx but would be high-risk candidate given coagulopathies as above. 4. Cirrhosis: hematuria/proteinuria not c/w HRS, therefore will try to more clearly define renal issue prior to transfer for OLT eval. Plan: 09/22/18 11:26 09/23/18 12:13 Subjective: Not feeling well, struggling with constipation. Objective: Vital Signs Temp Pulse Resp BP Pulse Ox 36.3 C 63 15 135/65 H 98 09/23/18 11:27 09/23/18 11:27 09/23/18 11:27 09/23/18 11:27 09/23/18 11:27 Laboratory Results 09/21/18 03:26 09/23/18 03:22 09/22/18 09/23/18 09/24/18 05:59 05:59 05:59 Intake Total 800 1000 Output Total 425 1100 Balance 375 -100 PT 19.6 SEC (12.0-15.0) H 09/21/18 03:26 INR 1.75 (0.83-1.16) H 09/21/18 03:26 Physical Exam - Physical Exam General Appearance: no apparent distress Respiratory: lungs clear (anteriorly) Cardiac/Chest: regular rate, rhythm Abdomen: soft Extremities: pedal edema ICD10 Worksheet Patient Problems: Problems Problem Status Onset Ascites Acute
--- NOTE | 2018-09-23 14:25 | ASMTDCNOTE ---
Case Management Discharge Discharge Order Complete? Answers: Yes Patient to Obtain Answers: Other Notes: [facility] Medications Transportation Arranged Answers: [facility] Stretcher Transport will Pick (Date 09/23/2018 03:30 PM & Time) EMTALA Complete Answers: Yes Case Management Transport Answers: Yes Form Complete Faxed Final Orders Answers: Yes Agency/Facility Transfer Answers: Yes Report Printed & Faxed to Receiving Agency Family Notified Answers: Yes Discharge Comments Notes: Treatment team spoke with pt's and agreed for transfer to [facility]. All parties are agreeable to transfer and [facility] is able to accept. CM scheduled transport, completed EMTALA form, copies in chart and in transport packet. UC helped obtain disk of studies and print notes for transport packet. CM submit discharge orders to Evelyn Morrissey to inform them via allscripts. Pt is accepted for room A-70. Transport scheduled for 3:30pm through [facility]. No other CM needs identfied. Date Signed: 09/23/2018 02:24 PM Electronically Signed By:GARTH Wheeler
--- NOTE | 2018-09-23 14:26 | ASMTLACE ---
LACE Length of stay for Answers: 7-13 days current admission Acuity / Level of Answers: Yes Care: Did the patient have an inpatient admission? Comorbidities - select Answers: Moderate or severe liver all that apply or renal disease Other Notes: Nonalcoholic cirrhosis # of Emergency department Answers: 0 visits in the last 6 months Score: 13 Date Signed: 09/23/2018 02:25 PM Electronically Signed By:GARTH Wheeler
--- NOTE | 2018-09-23 14:35 | SOAPPROG ---
GALLO Progress Note Assessment/Plan: Assessment:Plan: 1) Liver - HRS, s/p TIPS with recurrent ascites. May need OLT eval - Dr Goldman speaking with [facility] curb setter helper 2) renal - as per nephrology, HRS, midodrine and octreotide as per renal, cr down slightly 3) HE - Xifaxan as monotherapy 4) ascites - diuretics per renal, as above as above 1) liver - s/p TIPS with recurrent ascites - OLT eval at [facility] 2) renal - may not be HRS, renal ordering more tests 3) HE - Xifaxan monotherapy 4) dispo - Dr Bryant per family request has transferred pt to [facility] Subjective: cc- cirrhosis, ascites, renal failure pt in bed comfortable no f/c/s. no n/v Objective: Vital Signs Temp Pulse Resp BP Pulse Ox 36.3 C 63 15 135/65 H 98 09/23/18 11:27 09/23/18 11:27 09/23/18 11:27 09/23/18 11:27 09/23/18 11:27 Laboratory Results 09/21/18 03:26 09/23/18 03:22 09/22/18 09/23/18 09/24/18 05:59 05:59 05:59 Intake Total 800 1000 Output Total 425 1100 Balance 375 -100 PT 19.6 SEC (12.0-15.0) H 09/21/18 03:26 INR 1.75 (0.83-1.16) H 09/21/18 03:26 CTA S1S2 +BS soft ICD10 Worksheet Patient Problems: Problems Problem Status Onset Ascites Acute
[2018-09-23 15:01] VITALS: BP 122/59
--- NOTE | 2018-09-23 22:16 | GDS ---
[f rep st] DISCHARGE SUMMARY DISCHARGE DIAGNOSES: 1. Cirrhosis due to nonalcoholic steatohepatitis, status post transjugular intrahepatic portosystemi c shunt for intractable ascites. 2. Acute on chronic renal failure. 3. Possible nephrotic syndrome. 4. Urinary retention due to BPH. 5. Hepatic encephalopathy. HISTORY: The patient is a 73-year-old male with a history of OROZCO causing cirrhosis. He has never b een a drinker of alcohol. He was admitted for an elective TIPS procedure for intractable ascites as he was requiring weekly paracentesis. He underwent the TIPS procedure without complication. However , he subsequently went into worsening renal failure. His baseline creatinine is 1.9. Creatinine shahzad t up to 3 and has stayed at that level throughout his hospitalization. Nephrology was consulted. In itially, Nephrology was seeing this was hepatorenal syndrome. Yesterday, Dr. Howell came in and felt there is a high degree of protein in the urinalysis and is concerned for possible nephrotic syndrome. To truly diagnose the etiology of his renal failure, he may need a kidney biopsy. During his hospi talization here, we have had him on midodrine, octreotide, and IV albumin. Per patient's and family' s request, he is being transferred to [facility] for evaluation by their hepatology team since that is a transplant center. I spoke with the accepting hospitalist, Dr. Julien, and she is aware of the need for further evaluation of the renal disease and further workup of proteinuria as t his is not clearly hepatorenal at this time. He can be evaluated by the transplant fur coat sewer at [facility]. It is not clear if he would be a transplant candidate at this time. He has had a longstanding history of BPH which had been well managed on Flomax. During this hospital ization, he has been struggling with urinary retention. He had a Peralta placed. We attempted a Peralta trial but he failed. Had recurrence of urinary retention. Had to have the Peralta reinstituted. He will transfer to [facility] with a Peralta catheter in place. DISCHARGE MEDICATIONS: Please see computerized record for full detailed list. DISCHARGE INSTRUCTIONS: Transferring to [facility] under the direction of Dr. Julien per patient's and family's request. There were also discussions with our hepatology team re garding his need for evaluation with the transplant team which we do not have those capabilities at [facility]. Greater than 30 minutes' time were spent arranging this discharge. Patient was seen and examined by me on the day of discharge. /[id number]/MODL
== END 2018-09-23 15:22 | disposition short-term general hospital (02) | DRG 406 ==
LOC: EDSTATUS 15:36 → F3E 16:04 → OBSVTOIN 16:19 → F2W 09-13 18:58
PROVIDERS: ADMIT Internal Medicine; ATTEND Internal Medicine
DX: K75.81 Nonalcoholic steatohepatitis (NASH) (principal); R18.8 Other ascites; D68.4 Acquired coagulation factor deficiency; N04.9 Nephrotic syndrome with unspecified morphologic changes; E87.2 Acidosis; E87.5 Hyperkalemia; N18.3 Chronic kidney disease, stage 3 (moderate); N40.1 Benign prostatic hyperplasia with lower urinary tract symptoms; R33.9 Retention of urine, unspecified; E03.9 Hypothyroidism, unspecified; E11.9 Type 2 diabetes mellitus without complications; J44.9 Chronic obstructive pulmonary disease, unspecified; J45.909 Unspecified asthma, uncomplicated; K21.9 Gastro-esophageal reflux disease without esophagitis; I25.10 Atherosclerotic heart disease of native coronary artery without angina pectoris; I85.10 Secondary esophageal varices without bleeding
CPT/HCPCS: 86255-90; 86704-90; 97161-GP; 97165-GO; C1725; C1769; C1892; G0472; J1644; J1940; J1956; J2250; J2354; J2405; J2550; J2704; J3010; P9047; Q9967